=== PATIENT | female | born 1985 | race Caucasian/White ===

== ENCOUNTER 2022-05-27 00:22 | Emergency (ER) | payer BC ==
[2022-05-27] MEDS ORDERED: Acetaminophen 325 MG Tab PO ONE (01:01)
[2022-05-27 01:56] LABS: CARBON DIOXIDE,CO2 22.9 mmol/L (21.0-32.0); POTASSIUM,K 4.2 mmol/L (3.5-5.1)
== END 2022-05-27 02:56 | disposition home or self-care (01) ==
LOC: MW.ED 00:22
DX: O20.0 Threatened abortion (principal); O99.891 Other specified diseases and conditions complicating pregnancy; R10.9 Unspecified abdominal pain; Z88.8 Allergy status to other drugs, medicaments and biological substances; Z3A.09 9 weeks gestation of pregnancy
CPT/HCPCS: 36415; 76817; 80053; 81001; 84702; 85025; 86900; 86901; 87086; 99284; A9270

== ENCOUNTER 2023-10-17 07:22 | Emergency (ER) | payer BC ==
[2023-10-17] MEDS: Sulfamethoxazole/Trimethoprim 800-160 MG Tab PO ONE (07:50)
[2023-10-17] MEDS: Acetaminophen 500 MG Tab PO ONE (07:50)
[2023-10-17] MEDS: Ibuprofen 400 MG Tab PO ONE (07:50)
[2023-10-17] MEDS: Lidocaine/Epineph/Tetracaine 3 ML Syringe TOP ONE (07:51)
[2023-10-17] MEDS: Cephalexin 500 MG Cap PO ONE (07:51)
[2023-10-17] MEDS: Lidocaine 1% 5 ML VIAL INJECT ONE (07:55)
== END 2023-10-17 09:08 | disposition home or self-care (01) ==
LOC: MW.ED 07:22
DX: N76.4 Abscess of vulva (principal); Z75.8 Other problems related to medical facilities and other health care; Z86.19 Personal history of other infectious and parasitic diseases; Z79.899 Other long term (current) drug therapy
CPT/HCPCS: 56405; 99282; A9270; J3490